=== PATIENT | male | born 1975 | race Hispanic/Latino ===

== ENCOUNTER 2021-05-09 08:00 | Outpatient (RCR) | payer OTHER, SELFPAY ==
--- NOTE | 2021-04-05 09:39 | HP.PTEVAL_ITS ---
Patient's Visit Information MALDONADO COMBS is a 45 year old M referred to Physical Therapy by BARBARA Wolff with a diagnosis of LUMBAR FACET ARTHROPATHY. Date of Evaluation: 04/05/21 Physical Therapist: Jenniffer Acosta PT, Cert MDT - Visit Plan Frequency: 2-3x /Week Duration: 4-6 Weeks Plan: AQUATIC THERAPY FOR PAIN RELEIF, POSTURE CORRECTION/STRENGTHENING, INSTRUCTION IN APPROPRIATE BODY MECHANICS AND ACTIVITY MODIFICATIONS. DLS STARTING WITH A NEUTRAL SPINE PROGRESSING ROM TOLERATED. INÉS LE ROM, STRETCHING AND STRENGTHENING. HEP INSTRUCTION. 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 3RD SHIFT 10:30 (8:30) PM TO 6:30 AM. VERY LITTLE LABOR. A LOT OF SITTING. ALSO STANDING AND WALKING. PLAYS ICE HOCKEY ABOUT ONCE A WEEK FOR ABOUT 4 MONTHS MAY THROUGH DECEMBER. Present symptoms: RIGHT LOW BACK PAIN. INÉS HIP PAIN RIGHT > LEFT. DENIES GROIN PAIN. SOMTIMES INÉS LOW BACK PAIN. RECENT EPISODE OF RIGHT LE SX'S TO FOOT IN DECEMBER (LASTED ABOUT 2 WEEKS AND STRUGGLED TO DO ALMOST ANYTHING BUT W ORKED). INTERMITTENT RIGHT LE PAIN, NUMBNESS AND TINGLING. DENIES LLE SX'S. Present since: FOR YEARS BUT INCREASED IN spring. Pain Scale: WORST 10/10, LEAST 3/10. Currently: 4/10. Commenced as a result of: SITTING AND STOOD UP AND LOCKED UP SPRING 2019. Symptoms at onset: LOW BACK STIFFNESS FOR YEARS. Worse: LIFTING, BENDING, STANDING LONGER THAN 10 MINS, PROLONGED SITTING, WALKING. WENT TO [facility] YESTERDAY AND WALKED ON THE TREADMILL FOR AN HOUR AND ABOUT 15 OR 20 MINUTES IN THE PAIN WAS INTENSIFING. ABOUT 4.OMPH AND NO INCLINE. PAIN 6/10 POST TREADMIL. Better: INVERTER - MAYBE 20 MINUTE RELIEF THEN TIGHTENS BACK UP AGAIN. HEAT. SWIMMING POOL JETS. PREDNISONE AND MUSCLE RELAXER X 2 EPISODES BUT HELPED IN THE PAST TEMPRARILY. CURRENTLY NOT TAKING ANY PAIN MEDS. OTC OR OTHERWISE. Disturbed sleep: NO. Previous history/Previous treatment: PREDNISONE AND MUSCLE RELAXERS IN THE PAST ONLY. NO BACK SURGERY. NO BACK INJECTIONS. ONE CHIRO VISIT A FEW WEEKS AGO IN JANUARY AND I HATED IT BECAUSE THE SUDDEN CRACKING FELT UN-NATURAL AND I DON'T TRUST IT. I FELT LIKE HE WAS GOING TO BREAK ME. MORE SORE A COUPLE DAYS LATER. NO PHYSICAL THERAPY. Treatment this episode: PREDNISONE, MUSCLE RELAXER, AND ONE CHIROPRACTIC VISIT. ONE ORTHO CONSULT WITH MIGUEL AT [facility]. REPRODIONTE RIVERA SAW THAT THE LOWER TWO LEVELS IN HIS BACK SHOW DEGENERATION AND SHE WOULD LIKE HIM TO TRY PT FIRST AND GO FROM THERE. PROBABLE MRI NEEDED. Coughing/sneezing/straining: NOT CURRENTLY. Gait: SHORTER STRIDES. INÉS LE ER MORE THAN USUAL - I WADDLE. Difficulty initiating urinatin: NO. Accidents: NO. Unexplained weight loss: NO. Imaging: RECENT LUMBAR X-RAY AT [facility]. PMH/Recent major surgery: ANXIETY - Objective Sitting/Standing Posture: POOR. Lordosis: NORMAL. Lateral shift: NO. Relevant shift: N/A. Active Correction of posture: WORSE. Other Observations: INDEP GAIT AND TRANSFERS BUT DECREASED INÉS STRIDE LENGTH AND GUARDED MVMTS. Motor deficit: INÉS LE'S 5/5 WITH MMT'ING EXCEPT RIGHT HIP 4/5. Sensory deficit: INÉS LE LIGHT TOUCH SENSATION INTACT AND SYMMETRICAL. ROM deficit: TIGHT INÉS LE HS'S, HIP FLEXORS AND GASTROC SOLEUS COMPLEX'S. Reflexes: 2/3 INÉS LE'S. Dural Signs: POSITIVE RIGHT LE. Lumbar mvmt loss: flex - MOD. ext - MOD. R SG - MOD. L SG - MOD TO VALERIE. INCREASED LBP WITH LUMBAR ROM TESTING ALL PLANES. Core strength: POOR. Palpation: TENDERNESS WITH PALPATION OF THE RIGHT LUMBAR PARASPINAL REGIONS. TREATMENT: NEUROMUSCULAR REEDUCATION - RETRAINING OF MVMT AND POSTURE FOR SITTING, LYING AND STANDING ACTIVITIES. - Balance/Special Test Scores Oswestry Low Back Score: 17 - Goals Goal 1:: DECREASE C/O LOW BACK AND LE SX'S. Goal Time Frame: 4-6 Weeks Goal 2:: IMPROVE PERSONAL CARE, LIFTING, WALKING, SITTING, STANDING, SLEEP, SOCIAL LIFE, TRAVEL AND WORK/HOMEMAKING FUNCTION. Goal Time Frame: 4-6 Weeks Goal 3:: INSTRUCT IN PROPHYLAXIS Goal Time Frame: 4-6 Weeks - Anticipated Interventions Patient/Client Instruction: Educate patient on: Condition, Plan of Care, Risk Factors For the Purpose of:: To improve self management Therapeutic Exercise to Include: Strength training, Body mechanics, Postural training, Flexibilty training, Neuromotor development, In an aquatic setting, Dynamic Lumbar Stabilization For the Purpose of:: To decrease pain, To increase ROM, To improve muscle performance and motor function, To increase tolerance to activity/condition/position, To improve ability of physical actions for home/community/work/leisure Thank you for the opportunity to evaluate your patient. For Medicare and Medicare HMO plans, please review the plan of care and approve it. It will need to be FAXED BACK to us at [phone] for Medicare purposes. For Medicare only, by signing this I certify the plan of care. Please let me know if there are questions or concerns regarding this plan of care. Physician Signature: Date:
--- NOTE | 2021-05-09 08:33 | HP.PTREVAL_ITS ---
Tarsha Vásquez, AMBULATORY CARE COORDINATOR-C, It has been my pleasure to treat MALDONADO COMBS over the last 9 visits for LUMBAR FACET ARTHROPATHY. Please see the progress note below for an update on the physical therapy plan of care! Subjective: I DON'T FEEL MUCH COMPRESSION BEFORE - I FEEL MORE DECOMPRESSED. PATIENT REPORTS THAT AFTER A SESSION WITH THOMAS HE HAD NO PAIN AT ALL FOR ABOUT 24 HOURS. PATIENT REPORTS ABOUT 25% IMPROVEMENT WITH ACTIVITY MODIFICATIONS BUT WHEN HE TRIES TO DO NORMAL DAILY ACTIVITIES LIKE CARRYING GROCERIES INTO THE HOUSE, PICKING UP TOOL BAG AT WORK (30 LBS) AND OTHER LITTLE THINGS. HE REPORTS THAT ONCE HIS PAIN INCREASES IT STAYS INCREASED FOR A LONG TIME. PATIENT REPORTS DECREASED PAIN AFTER EACH WATER SESSION. IT FELT LIKE A FELL A LONG DISTANCE AND LANDED ON MY FEET AND ABSORBED IT ALL IN HIS BACK AND LEGS. Objective/Function: PATIENT WAS SEEN TODAY FOR RE-ASSESSMENT OF PROGRESS TOWARD THE SET PT GOALS AND THE NEED FOR FURTHER PHYSICAL THERAPY VS READINESS FOR DISCHARGE. OVER-ALL JACKNET HAS ONLY MADE MINIMAL PROGRESS WITH PT WITH ACTIVITY MODIFICATIONS OUTSIDE OF THERAPY. UPON EXAM TODAY: LUMBAR MVMT LOSS: FLEX - MOD, EXT - MOD, R SG - MOD, L SG - MOD. PATIENT CONTINUES TO HAVE LOW BACK TENDERNESS WITH PALPATION ESPECIALLY THE RIGHT PARASPINALS. R LE DURAL TEST CONTINUES TO BE POSITIVE TOO. SYMPROMS ARE EASILY AGGREVATED WITH TESTING. PHYSICIAN RE-CHECK RECOMMENDED AND PATIENT AGREEABLE. Plan Plan: PHYSICIAN RE-CHECK Balance/Gait/Functional tests - Balance/Special Test Scores Oswestry Low Back Score: 12 Goals Goal 1:: DECREASE C/O LOW BACK AND LE SX'S. Goal Time Frame: 4-6 Weeks Goal Progress: Progressing Goal 2:: IMPROVE PERSONAL CARE, LIFTING, WALKING, SITTING, STANDING, SLEEP, SOCIAL LIFE, TRAVEL AND WORK/HOMEMAKING FUNCTION. Goal Time Frame: 4-6 Weeks Goal Progress: Progressing Goal 3:: INSTRUCT IN PROPHYLAXIS Goal Time Frame: 4-6 Weeks Goal Progress: Progressing Anticipated Interventions Patient/Client Instruction: Educate patient on: Condition, Plan of Care, Risk Factors For the Purpose of:: To improve self management Therapeutic Exercise to Include: Strength training, Body mechanics, Postural training, Flexibilty training, Neuromotor development, In an aquatic setting, Dynamic Lumbar Stabilization For the Purpose of:: To decrease pain, To increase ROM, To improve muscle performance and motor function, To increase tolerance to activity/condition/position, To improve ability of physical actions for home/community/work/leisure Please do not hesitate to contact me at [phone] by phone or if you have questions or concerns regarding this new plan of care! Sincerely, Jenniffer Acosta, PT, Cert MDT
--- NOTE | 2021-07-19 12:31 | HP.PT.NRP ---
MALDONADO COMBS was seen in my office for initial evaluation on 04/05/21. The following Plan of Care was established for this patient: Initial Frequency: 2-3x /Week Initial Duration: 4-6 Weeks Patient/Client Instruction: Educate patient on: Condition, Plan of Care, Risk Factors For the Purpose of:: To improve self management Therapeutic Exercise to Include: Strength training, Body mechanics, Postural training, Flexibilty training, Neuromotor development, In an aquatic setting, Dynamic Lumbar Stabilization For the Purpose of:: To decrease pain, To increase ROM, To improve muscle performance and motor function, To increase tolerance to activity/condition/position, To improve ability of physical actions for home/community/work/leisure This patient was last seen in our office 05/09/21. Pertinent comments regarding their Physical therapy will appear below: This patient has not returned to Physical Therapy and is appropriate to return to MD for further follow-up as needed. At this point I will be discontinuing this patient from physical therapy. I would be happy to see this patient again in the future if found appropriate by the physician. Thank you! Jenniffer Acosta, PT, Cert MDT Balance/Gait/Functional tests - Balance/Special Test Scores Oswestry Low Back Score: 12
== END 2021-05-09 19:00 | disposition home or self-care (01) ==
LOC: PT 08:00
PROVIDERS: Referring Provider Nurse Practitioner Acute Care; Visit Provider Nurse Practitioner Acute Care
DX: M46.96 Unspecified inflammatory spondylopathy, lumbar region (principal)
CPT/HCPCS: 97112; 97113; 97162; 97164

== ENCOUNTER 2021-05-18 10:54 | Emergency (ER) | payer OTHER, SELFPAY ==
[2021-05-18 10:55] VITALS: BP 174/129; PULSE 104; RESP 18; TEMP 36.6; O2SAT 93; BMI 28.2
--- NOTE | 2021-05-18 11:11 | EDS_ITS ---
HPI HPI - Fall History of Present Illness Chief Complaint: Fall Informant: patient and friend Occured/Mechanism Occurred: Today Pain/Injury Pain Location: head Current Severity: Mild Maximum Severity: Moderate Narrative Narrative: Patient presents after fall with head injury. Patient was walking on ice at the ice rink when he fell striking the back of his head. Friend that is at bedside states there was no loss of consciousness. He has a laceration to the posterior scalp that they applied pressure to. Friend states that has been repeating questions since the injury, but it does seem to be getting better and he seems to be retaining more information. Patient denies neck pain. He is unsure of his last tetanus update. He is not on blood thinners. [facility] Medical History Anxiety Back problem Chronic back pain Colon cancer screening Elevated blood pressure reading Obstructive sleep apnea Seasonal allergies Tongue swelling Home Medications alprazolam 0.5 mg tablet 0.5 mg PO QHS PRN 05/02/21 [History Last Taken Unknown] cholecalciferol (vitamin D3) 50 mcg (2,000 unit) tablet 50 mcg PO DAILY 05/02/21 [History Last Taken Unknown] cod liver oil 1 cap PO ONCE 05/02/21 [History Last Taken Unknown] Allergy/AdvReac Type Severity Reaction Status Date / Time No Known Allergies Allergy Unverified 05/18/21 10:56 Family History Father Cancer Melanoma Grandfather Hypertension Hyperlipemia Surgical History History of removal of cyst Social History Smoking Status: Former smoker alcohol intake: current alcohol intake frequency: a few times a week Alcohol type: beer and hard liquor substance use type: does not use ROS ROS ED Constitutional Constitutional ED: Denies chills or fever(s) Eyes Eyes: Denies change in vision ENT ENT ED: Denies sore throat Cardiovascular Cardiovascular: Denies chest pain Respiratory/Chest Respiratory/Chest: Denies cough or dyspnea Gastrointestinal Gastrointestinal: Denies abdominal pain, diarrhea, nausea or vomiting Genitourinary Genitourinary ED: Denies dysuria Musculoskeletal Musculoskeletal: Denies back pain or neck pain Integumentary Reports other Details: Scalp laceration ; Denies rash Neurologic Neurologic: Reports headache(s); Denies weakness Psychiatric Psychiatric: Reports anxiety; Denies depression Allergic/Immunologic Allergic/Immunologic ED: Denies urticaria EXAM Physical Exam Const Vital Signs: 05/18/21 10:55 05/18/21 11:14 Temperature 98 F Temperature Source Temporal Pulse Rate 104 H Respiratory Rate 18 Respiratory Effort Normal Non-Labored Blood Pressure 174/129 H Blood Pressure Mean 144 Pulse Ox 93 Oxygen Delivery Method Room Air Positive well nourished and well developed General Appearance ED: well developed HEENT HEENT Narrative: 4 cm laceration across the posterior parietal scalp. Bleeding well controlled. Eyes PERRL and EOMs intact bilaterally Neck Neck Narrative: No focal C-spine tenderness. Chest Wall inspection of chest normal and palpation of chest normal Resp normal respiratory effort and clear to auscultation bilaterally Cardio regular rate and regular rhythm GI non-tender Palpation: soft Back/Spine Cervical Spine: Negative for cervical spine tenderness Thoracic Spine / Upper Back: Negative for thoracic spinal tenderness Lumbar Spine / Lower Back: Negative for lumbar spinal tenderness Extremity normal to inspection and full ROM Neuro Neuro Narrative: Patient is alert and oriented but does not remember details of what happened. Allen Coma Scale: document GCS findings Spontaneous Obeys Commands Oriented 15 Sensorium / Orientation: alert Skin Skin Narrative: Scalp laceration as above MDM MDM MDM Narrative Medical decision making narrative: CT head and C-spine obtained. Tetanus update provided. Radiography Diagnostic Testing: Radiology Impression Brain CT 05/18/21 11:25 IMPRESSION: Normal unenhanced CT scan of the brain. Electronically Signed: Quintin Morrissey MD at 11:59 EDT , Service support , Cervical Spine CT 05/18/21 11:25 IMPRESSION: Normal unenhanced CT examination of the cervical spine. Electronically Signed: Quintin Morrissey MD at 12:00 EDT , Service support , Treatment and Re-Evaluation Comments:: CT scans are unremarkable. Patient's wound is anesthetized, cleansed, sutured. Please see procedure note. Close head injury instructions and wound care instructions provided. Patient is to have sutures removed in 7 days. Procedures Lacerations Scalp laceration: Length: 1.57 in Depth: Sub Q Laceration repair: Irrigated, Lidocaine and Local Suture Information: Ethilon, Simple and 4-0 Discharge Plan Triage Chief Complaint: Fall ED Provider: Kaylee Bermeo Dx/Rx/DC Orders Clinical Impression: Laceration of scalp, Head injury, closed, with concussion Instructions: ED Concussion, ED Laceration: All Closures Prescriptions: No Action cholecalciferol (vitamin D3) 50 mcg (2,000 unit) tablet 50 mcg PO DAILY RF: 0 cod liver oil Capsule 1 cap PO ONCE RF: 0 alprazolam [Xanax] 0.5 mg tablet 0.5 mg PO QHS PRNRF: 0 Primary Care Provider: Care Physician,No Primary Referrals: Promise Law MD [STAFF PHYSICIAN] - 7 Days for suture removal Care Physician,No Primary [Primary Care Provider] - Disposition Disposition: Home, Self Care
--- NOTE | 2021-05-18 11:25 | CT_ITS ---
STUDY: CT BRAIN WITHOUT CONTRAST REASON FOR EXAM: Male, 45 years old. Trauma RADIATION DOSAGE (If Supplied By Facility): CTDIvol = ( 44.99 ) mGy, DLP = ( 846.73 ) mGycm TECHNIQUE: Transaxial CT imaging of the brain was performed without administration of intravenous contrast material. Individualized dose optimization techniques were used for this CT. COMPARISON: No relevant priors. FINDINGS: Normal soft tissue structures. Normal calvarium. Normal size ventricles and extra-axial spaces for the patient''s age. Normal white matter tracts of the cerebral hemispheres. Normal basal ganglia and thalami. Normal brainstem. Normal cerebellum. There is no intracranial hemorrhage. There are no findings of an acute ischemic infarction. Normal visualized paranasal sinuses. CT/Brain/Head without Contrast IMPRESSION: Normal unenhanced CT scan of the brain. Electronically Signed: Quintin Morrissey MD at 11:59 EDT , Service support ,
--- NOTE | 2021-05-18 11:25 | CT_ITS ---
STUDY: CT CERVICAL SPINE WITHOUT CONTRAST REASON FOR EXAM: Male, 45 years old. Trauma RADIATION DOSAGE (If Supplied By Facility): CTDIvol = ( 27.61 ) mGy, DLP = ( 609.41 ) mGycm TECHNIQUE: High resolution transaxial imaging was performed without contrast material. Sagittal and coronal images were reconstructed. Individualized dose optimization techniques were used for this CT. COMPARISON: None FINDINGS: Normal craniovertebral junction. Normal anterior atlantoaxial articulation. Normal odontoid process. There is straightening of the normal cervical lordosis. Normal vertebral bodies and posterior osseous elements. C2-3: Normal endplates. Normal disc height and morphology. Normal central canal and intervertebral neuroforamina. C3-4: Normal endplates. Normal disc height and morphology. Normal central canal and intervertebral neuroforamina. C4-5: Normal endplates. Normal disc height and morphology. Normal central canal and intervertebral neuroforamina. C5-6: Normal endplates. Normal disc height and morphology. Normal central canal and intervertebral neuroforamina. C6-7: Normal endplates. Normal disc height and morphology. Normal central canal and intervertebral neuroforamina. C7-T1: Normal endplates. Normal disc height and morphology. Normal central canal and intervertebral neuroforamina. Normal visualized soft tissue structures. CT/Spine Cervical without Contras IMPRESSION: Normal unenhanced CT examination of the cervical spine. Electronically Signed: Quintin Morrissey MD at 12:00 EDT , Service support ,
[2021-05-18] MEDS: Diphth,Pertuss(Acell),Tet Vac 0.5 ML Vial IM (11:32)
[2021-05-18] MEDS: Lidocaine 1% (20 ml mdv) 20 ML Vial INFILT (11:32)
== END 2021-05-18 12:32 | disposition home or self-care (01) ==
PROVIDERS: Emergency Provider Emergency Medicine
DX: S06.0X0A Concussion without loss of consciousness, initial encounter (principal); S01.01XA Laceration without foreign body of scalp, initial encounter; F41.9 Anxiety disorder, unspecified; Z79.899 Other long term (current) drug therapy; Z87.891 Personal history of nicotine dependence; Z23 Encounter for immunization; W18.30XA Fall on same level, unspecified, initial encounter; Y93.01 Activity, walking, marching and hiking; Y92.330 Ice skating rink (indoor) (outdoor) as the place of occurrence of the external cause; Y99.8 Other external cause status
CPT/HCPCS: 12002; 70450; 72125; 90715; 99283

== ENCOUNTER 2021-11-24 15:34 | Outpatient (CLI) | payer OTHER, SELFPAY ==
--- NOTE | 2021-11-24 09:20 | TOBX_PTH ---
PATIENT: MALDONADO COMBS LOC: [facility] U#:[id number] AGE/SX: 46/M ROOM: RE11/24/[address]: Dr. Jose C Avendaño MD : [id number] BED: DIS: 11/24/2021 SPEC #: [id number] RECD: 11/24/21 15:05 STATUS: MIKE DOTSON #: [id number] GLORIA: 11/24/21 09:[address]: Jose C Avendaño DEPT: SURGICAL PATHOLOGY RECD BY: Reena Boo ENTERED: 11/27/21 08:26 SP TYPE: TONGUE BX PENELOPE DR: Dr. Carrillo Salcedo MD Tissues: Tongue, NOS Procedures: Surgery Specimen Level IV HEADER OPERATION: Not noted PRE-OP DIAGNOSIS: Tongue mass TISSUE SUBMITTED: Tongue mass MICROSCOPIC DIAGNOSIS Tongue mass, biopsy: Consistent with polypoid fibroma. AM:tonny 11/28/2021 MICROSCOPIC DESCRIPTION Slides are reviewed. GROSS DESCRIPTION Received in fixative is one container labeled with the patient's name and designated tongue mass. The specimen consists of a piece of sanchez-white soft tissue measuring 0.2 x 0.2 x 0.1 cm. The specimen is totally submitted in one cassette. / SJ:rg 11/27/2021 TC:5 CPT: 34506
== END 2021-11-24 23:59 | disposition home or self-care (01) ==
LOC: LABSPEC 15:35
PROVIDERS: PCP Internal Medicine; Visit Provider Otolaryngology
DX: K14.9 Disease of tongue, unspecified (principal)
CPT/HCPCS: 88305

== ENCOUNTER 2023-07-22 10:38 | Emergency (ER) | payer BC, SELFPAY ==
[2023-07-22 10:39] VITALS: BP 135/95; PULSE 66; RESP 15; TEMP 36.5; O2SAT 99; BMI 31.8
--- NOTE | 2023-07-22 10:59 | EKG12_ITS ---
Test Reason : CP Blood Pressure : / mmHG Vent. Rate : 077 BPM Atrial Rate : 077 BPM P-R Int : 154 ms QRS Dur : 078 ms QT Int : 370 ms P-R-T Axes : 051 -24 042 degrees QTc Int : 418 ms Normal sinus rhythm Normal ECG Confirmed by ROSEANNE LITTLEJOHN, HODAN ([id number]), editorial intern PINKY DENT ([id number]) on 07/24/2023 12:44:02 PM Referred By: MARIELLE/MARGARITA Confirmed By:HODAN CRONIN MD
--- NOTE | 2023-07-22 11:01 | ED.RN ---
NO OLD EKG
[2023-07-22 11:08] LABS: Absolute Neutrophil Count 3.2 X10^3/uL (2.0-7.7); Basophil# 0.03 X10^3/uL; Basophil% 0.6 % (0-1); Eosinophil# 0.07 X10^3/uL; Eosinophils% 1.3 % (0-5); Hematocrit 44.4 % (40-54); Hemoglobin 15.6 g/dL (13.0-16.5); Mean Corp Hgb Conc 35.1 g/dL (32-36); Mean Corpuscular Hgb 29.7 pg (27.0-32.0); Mean Corpuscular Volume 84.6 fL (80-94); Mean Platelet Vol. 9.6 fl (6.2-12.0); Monocyte% 7.5 % (0-10); NRBC Flagged by Analyzer 0 % (0-5); Neutrophil # 3.22 X10^3/uL (2.7-7.7); Neutrophil % 60.2 % (47-70); Platelet Count 275 K/mm3 (150-450); RBC Distribution Width CV 12.1 % (11.6-14.6); RBC Distribution Width SD 36.9 fl (35.1-43.9); Red Blood Count 5.25 M/mm3 (4.6-6.2); White Blood Count 5.3 K/mm3 (4.4-11.0)
--- NOTE | 2023-07-22 11:08 | RAD_ITS ---
HISTORY: chest pain. TECHNIQUE: XR Chest 1 View. COMPARISON: None. FINDINGS: CARDIOMEDIASTINAL BORDERS: Cardiac silhouette within normal limits in size. Mediastinal contour unremarkable. LUNGS: Radiographically clear. PLEURA: No pleural effusion or pneumothorax seen. OSSEOUS STRUCTURES: Unremarkable. RAD/Chest 1 View (Portable) IMPRESSION: No acute cardiopulmonary process identified. Electronically Signed: Jeannie Cramer MD at 11:17 EST ,
[2023-07-22 11:30] LABS: Anion Gap 6 (5-15); BUN 10 mg/dL (7-18); BUN/Creat Ratio 9.5 RATIO (10-20); Calcium,Total 9.1 mg/dL (8.5-10.1); Chloride 106 mmol/L (98-107); Creatinine, Serum 1.05 mg/dL (0.70-1.30); EST Glomerular Filtration Rate 80 mL/min (>60); Est Glom Filt Rate - Afr Amer 97 mL/min (>60); Estimated Creatinine Clearance 81.31 ml/min; Glucose 92 mg/dL (74-106); Potassium 3.6 mmol/L (3.5-5.1); Sodium Level 140 mmol/L (136-145); Troponin-I HS (w/2H Reflex) 5 pg/mL (3.0-78.0)
[2023-07-22] MEDS: Aspirin 81 MG TAB.CHEW 324 MG PO (11:39)
[2023-07-22 12:12] VITALS: BP 128/83; PULSE 67; RESP 16; O2SAT 97
[2023-07-22 13:04] LABS: Reflex Troponin-HS? (from REC) Y
[2023-07-22 13:21] LABS: Troponin-I HS 5 pg/mL (3.0-78.0)
--- NOTE | 2023-07-22 13:54 | EDS_ITS ---
HPI History of Present Illness Chief Complaint: Chest Pain Narrative Narrative: 47-year-old male with history of hypertension, ALESSANDRO, anxiety presenting with chest pain. Started about 9:40 AM. He describes it as tightness. He was fairly constant until prior to the emergency room. Patient states he has had cardiac issues in the past. He just had a work-up done at [facility]. Recent echo was reassuring. Patient states that he has not a cough, fever, shortness of breath. No orthopnea or dyspnea on exertion. Patient is concerned this could possibly be anxiety but also was concerned with his history of cardiac disease. [facility] Medical History Anxiety Back problem Chronic back pain Colon cancer screening Elevated blood pressure reading Obstructive sleep apnea Seasonal allergies Tongue swelling Home Medications alprazolam 0.5 mg tablet (Xanax) 0.5 mg PO QHS PRN 05/02/21 [History Last Taken Unknown] cholecalciferol (vitamin D3) 50 mcg (2,000 unit) tablet 50 mcg PO DAILY 05/02/21 [History Last Taken Unknown] cod liver oil 1 cap PO ONCE 05/02/21 [History Last Taken Unknown] Allergy/AdvReac Type Severity Reaction Status Date / Time No Known Allergies Allergy Verified 07/22/23 10:43 Family History Father Cancer Melanoma Grandfather Hypertension Hyperlipemia Surgical History History of removal of cyst Social History Smoking Status: Former smoker alcohol intake: current alcohol intake frequency: a few times a week Alcohol type: beer and hard liquor substance use type: does not use ROS ROS ED Constitutional Constitutional ED: Denies chills, fever(s) or sweats Eyes Eyes: Denies blurry vision or change in vision ENT ENT ED: Denies ear pain or sore throat Cardiovascular Cardiovascular: Reports chest pain and palpitations; Denies racing heartbeat Respiratory/Chest Respiratory/Chest: Denies cough, dyspnea or sputum Gastrointestinal Gastrointestinal: Denies abdominal pain, constipation, diarrhea, nausea or vomiting Genitourinary Genitourinary ED: Denies dysuria, hematuria or urinary frequency Musculoskeletal Musculoskeletal: Denies arthralgias, myalgias or neck pain Integumentary Denies abscess, Abrasions or rash Neurologic Neurologic: Denies headache(s), paresthesias or weakness Psychiatric Psychiatric: Reports anxiety; Denies depression, suicidal ideation or suicidal thoughts Endocrine Endocrinology: Denies polydipsia or polyuria EXAM Physical Exam Const Vital Signs: 07/22/23 10:39 07/22/23 12:11 07/22/23 12:12 Temperature 97.7 F L Temperature Source Oral Pulse Rate 66 Respiratory Rate 15 Respiratory Effort Normal Non-Labored Blood Pressure 135/95 H Blood Pressure Mean 108 Pulse Ox 99 Oxygen Delivery Method Room Air Room Air 07/22/23 12:12 Temperature Temperature Source Pulse Rate 67 Respiratory Rate 16 Respiratory Effort Blood Pressure 128/83 H Blood Pressure Mean 98 Pulse Ox 97 Oxygen Delivery Method Room Air Positive well nourished General Appearance ED: NAD; Negative for pallor HEENT Reports moist mucous membranes normocephalic and atraumatic Eyes PERRL and EOMs intact bilaterally Chest Wall inspection of chest normal Resp normal respiratory effort and clear to auscultation bilaterally Auscultation: Negative for rales, rhonchi or wheezes Cardio regular rate and regular rhythm GI normal to inspection, nondistended, normoactive bowel sounds Neuro oriented x3 and CN's II-XII intact bilaterally Sensorium / Orientation: awake and alert Psych Mood & Affect: anxious Skin no rashes or lesions noted General Skin Exam: Negative for jaundice or pallor Heart Score History: Slightly/Non-Suspicious ECG: Normal Age: >45 - <65 years Risk Factors: 1 or 2 Risk Factors Troponin: </= Normal Limit Score: 2 MDM MDM MDM Narrative Medical decision making narrative: Patient presenting with chest pain. Differential includes ACS, pneumonia, PE however patient PERC negative. CBC obtained to assess white blood cell count, hemoglobin, platelets. BMP to assess renal function, electrolytes. Sensitivity troponin and EKG to assess for dysrhythmia/ischemia. Chest x-ray to rule pneumonia. EKG on my interpretation shows a normal sinus rhythm with a ventricular to 77 beats minute without sign of ischemic change or dysrhythmia. Chest x-ray my interpretation shows no acute process. Patient's troponin and delta troponin are both 5. Patient denies any chest pain currently in the ED. Given his negative work-up I feel he stable for discharge home. He does have concern this could possibly be anxiety and I recommended he follow-up with his PCP for this. Patient has Xanax at home that he takes for this. Return precautions were discussed. Impression: 1. Chest pain 2. History of anxiety Lab Data Attestation: I reviewed the patient's lab results. Labs: Laboratory Results - last 24 hr 07/22/23 07/22/23 10:45 12:30 WBC 5.3 RBC 5.25 Hgb 15.6 Hct 44.4 MCV 84.6 MCH 29.7 MCHC 35.1 RDW Std Deviation 36.9 RDW Coeff of Jennifer 12.1 Plt Count 275 MPV 9.6 Immature Gran % (Auto) 0.400 Neut % (Auto) 60.2 Lymph % (Auto) 30.0 [place] % (Auto) 7.5 Eos % (Auto) 1.3 Baso % (Auto) 0.6 Absolute Neuts (auto) 3.2 Absolute Lymphs (auto) 1.60 Nucleated RBC % 0 Sodium 140 Potassium 3.6 Chloride 106 Carbon Dioxide 28.0 Anion Gap 6 BUN 10 Creatinine 1.05 Estim Creat Clear Calc 81.31 Est GFR (MDRD) Af Amer 97 Est GFR (MDRD) Non-Af 80 BUN/Creatinine Ratio 9.5 L Glucose 92 Calcium 9.1 Troponin I High Sens 5 5 Radiography Diagnostic Testing: Clinical Impression(s) from Imaging Studies Chest X-Ray 07/22/23 11:08 IMPRESSION: No acute cardiopulmonary process identified. Electronically Signed: Jeannie Cramer MD at 11:17 EST , Discharge Plan Triage Chief Complaint: Chest Pain ED Provider: Edvin Chen Dx/Rx/DC Orders Instructions: ED Chest Pain, Uncertain Cause Prescriptions: No Action cholecalciferol (vitamin D3) 50 mcg (2,000 unit) tablet 50 mcg PO DAILY cod liver oil Capsule 1 cap PO ONCE alprazolam [Xanax] 0.5 mg tablet 0.5 mg PO QHS PRN Primary Care Provider: Ovidio Horne NP Referrals: Coleen,Ovidio Maxwell UNDER CUTTING MACHINE OPERATOR, UNDER CUTTING MACHINE OPERATOR-C [Primary Care Provider] - Disposition Disposition: Home, Self Care
[2023-07-22 14:08] VITALS: BP 128/83; PULSE 86; RESP 16
== END 2023-07-22 14:11 | disposition home or self-care (01) ==
PROVIDERS: Emergency Provider Student in an Organized Health Care Education/Training Program; PCP Nurse Practitioner Family; Visit Provider Student in an Organized Health Care Education/Training Program
DX: R07.9 Chest pain, unspecified (principal); F41.9 Anxiety disorder, unspecified; I10 Essential (primary) hypertension; Z87.891 Personal history of nicotine dependence
CPT/HCPCS: 71045; 80048; 84484; 85025; 93005; 99284; A4216

== ENCOUNTER 2024-04-18 20:36 | Emergency (ER) | payer BC, SELFPAY ==
[2024-04-18 20:36] VITALS: BP 144/85; PULSE 75; RESP 18; TEMP 36.1; O2SAT 99; BMI 30.6
--- NOTE | 2024-04-18 20:53 | EKG12_ITS ---
Test Reason : CP Blood Pressure : / mmHG Vent. Rate : 065 BPM Atrial Rate : 065 BPM P-R Int : 150 ms QRS Dur : 082 ms QT Int : 386 ms P-R-T Axes : 037 -17 044 degrees QTc Int : 401 ms Normal sinus rhythm Normal ECG Confirmed by ASHLIE LITTLEJOHN, KOMAL ([id number]), assignment desk editor PINKY DENT ([id number]) on 04/24/2024 6:15:53 AM Referred By: Confirmed By:JANKI DAILEY MD
--- NOTE | 2024-04-18 21:00 | ED.VIS.CHEST ---
HPI History of Present Illness Chief Complaint: Chest Pain Informant: patient Onset/Context/Timing Onset: Today and Hours Activity at onset: sudden Timing: Intermittent Quality: Positive for - (Cramping like a muscle spasm.) Location: Left Chest Current Severity: Gone Maximum Severity: Mild Worsened By: Nothing Relieved By: Nothing Associated Symptoms: Negative for Nausea, Vomiting, Diaphoresis, Dyspnea, Cough, Fever, Lightheadedness, Acid Reflux or Palpitations Narrative Narrative: 48-year-old male history of anxiety. No prior cardiac history. No prior cath or stress test. Was packing the night for a trip he put a piece of luggage down. He had a jolt in his left chest. He said he fell like a muscle spasm. It lasted less than 5 seconds. He had several other episodes. Currently his pain-free. No radiation to his neck jaw or back. No radiation of his arm. No recent exertional dyspnea nor any exertional chest pain. Prior Similar Symptoms: No Recent Illness/Hospitalization: No CVD Risk Factors: Negative for Hypertension, Diabetes or Hypercholesterolemia PE Risk Factors: Negative for Recent Travel/Surgery, Recent Immobilization, Prior DVT or PE, Cancer or OCP + Smoking + >/=35 TAD Risk Factors: Negative for Marfan's Syndrome or Hypertension [facility] Medical History Chronic back pain Obstructive sleep apnea Elevated blood pressure reading Tongue swelling Colon cancer screening Back problem Anxiety Seasonal allergies Home Medications ?Medication ?Instructions ?Recorded ?Last Taken ?Type NK 04/18/24 Unknown History Allergy/AdvReac Type Severity Reaction Status Date / Time No Known Allergies Allergy Verified 04/18/24 20:47 Family History Father Cancer Melanoma Grandfather Hypertension Hyperlipemia Surgical History History of removal of cyst Social History housing: house Smoking Status: Former smoker alcohol intake: current alcohol intake frequency: a few times a week Alcohol type: beer and hard liquor substance use type: does not use ROS ROS ED ROS Narrative Denies recent illness. Denies any recent exertional chest pain or exertional shortness of breath. Review of Systems ROS Unobtainable: Denies due to encephalopathy Constitutional Constitutional ED: Denies chills or fever(s) Eyes Eyes: Reports none ENT ENT ED: Denies ear pain Cardiovascular Cardiovascular: Reports as per HPI and chest pain; Denies palpitations or racing heartbeat Respiratory/Chest Respiratory/Chest: Denies cough, dyspnea or dyspnea on exertion Gastrointestinal Gastrointestinal: Denies abdominal pain, constipation, diarrhea, melena, nausea or vomiting Genitourinary Genitourinary ED: Denies dysuria or hematuria Musculoskeletal Musculoskeletal: Denies arthralgias or back pain Integumentary Denies abscess Neurologic Neurologic: Denies headache(s) Psychiatric Psychiatric: Reports anxiety Endocrine Endocrinology: Denies cold intolerance Hematologic/Lymphatic Hematologic/Lymphatic: Denies easy bleeding or easy bruising Allergic/Immunologic Allergic/Immunologic ED: Denies mouth swelling, tongue swelling or urticaria EXAM Physical Exam Narrative Exam Narrative: Well-appearing 48-year-old male. Vital signs stable afebrile. Pulse ox 99% on room air no hypoxia. H EENT exam unremarkable. Neck nontender. No JVD. No lymphadenopathy. Lungs clear to auscultation bilaterally. Heart regular rhythm no murmur. Chest wall minimal tenderness left anterior rib cage just below his nipple on the left. No ecchymosis or bruising. No subcu air. No redness or warmth. No swelling. Normal in appearance. No bony deformity. Abdomen soft nontender. Normal bowel sounds no peritoneal signs. Moving all 4 extremities. Equal 5/5 stopperer assembler strength. Dorsi plantarflexion intact. Equal symmetrical radial pulses. Calves are nontender no edema or cords. Back nontender. Neurologically is awake and alert no focal motor deficits. Const Vital Signs: 04/18/24 20:36 04/18/24 21:07 04/18/24 21:36 Temperature 96.9 F L Temperature Source Temporal Pulse Rate 75 69 Respiratory Rate 18 20 H Blood Pressure 144/85 H 141/85 H Blood Pressure Mean 104 103 Pulse Ox 99 Oxygen Delivery Method Room Air Room Air Positive well nourished and well developed; Negative for cachectic, contractures or unkempt General Appearance ED: well developed and NAD; Negative for unkempt, cachectic, contractures or pallor Nutritional Appearance: Negative for cachectic HEENT Reports moist mucous membranes normocephalic and atraumatic; Negative for trauma or tenderness Eyes PERRL and EOMs intact bilaterally General Eye ED: Negative for pale conjunctiva Neck no lymphadenopathy, supple and no JVD General: Negative for tenderness Chest Wall inspection of chest normal; Negative for palpation of chest normal Chest Narrative: Minimal tenderness left anterior chest midclavicular line below his nipple. No bruising or redness. No bony crepitance. No subcu air. Normal appearance. Resp normal respiratory effort and clear to auscultation bilaterally Effort and Inspection: Negative for respiratory distress Auscultation: Negative for rales, rhonchi, wheezes or diminished lung sounds Cardio regular rate, regular rhythm, S1 normal heart sound, S2 normal heart sound and no murmurs Rate: Negative for bradycardia, tachycardic or other Rhythm: Negative for abnormal rhythm Peripheral Pulses: pulses 2+ throughout GI normal to inspection, nondistended, normoactive bowel sounds, soft to palpation, non-tender, non-distended and no masses Back/Spine no CVA tenderness and no thoracic nor lumbar tenderness General Back: Negative for CVA tenderness Cervical Spine: Negative for cervical spine tenderness Extremity normal to inspection General Extremety ED: Negative for edema, pulses abnormal or tenderness General Extremity: Negative for edema or pulses abnormal Neuro oriented x3 and CN's II-XII intact bilaterally Sensorium / Orientation: awake, alert, oriented to person, oriented to place and oriented to time; Negative for confused, lethargic or stuporous Motor Exam: strength 5/5 throughout Psych mental status grossly normal Appearance: Negative for unkempt Attitude: No agitated Mood & Affect: anxious; Negative for depressed or tearful Skin no rashes or lesions noted and no wounds General Skin Exam: Negative for jaundice or pallor Rashes: No rashes noted Trauma: Negative for abrasion or laceration Heart Score History: Slightly/Non-Suspicious ECG: Normal Age: >45 - <65 years Risk Factors: No Risk Factors Troponin: </= Normal Limit Score: 1 MDM MDM MDM Narrative Medical decision making narrative: 48-year-old male history of anxiety with very atypical nonexertional chest pain is mildly reproducible. I suspect this is musculoskeletal etiology. It may have been a muscle spasm. And only occurred about 7 hours ago. It has been intermittent. No undergoing cardiac workup. My suspicion of this being cardiac is very low. If his cardiac workup is negative will be discharged home. No history of DVT or PE risk factors. Repeat exam at 9:58 PM patient is doing well. Exam benign and unchanged. He and I went over all his test results. We discussed the 2-hour troponin. Patient would prefer not to wait around. He will be discharged home. I do not think this is cardiac I do not think the 2-hour troponin would have been abnormal. History & Record Review Discussion w/independent historian: Patient Additional record(s) reviewed:: Prior inpatient record, Prior outpatient record, Prior ED visit, Prior labs and No prior records Lab Data Attestation: I reviewed the patient's lab results. Lab results narrative: CBC normal. White count is 7. H&H 15 and 45. Platelets 298. Chest x-ray normal. Chemistry is normal. Gap 6. Normal BUN and creatinine. Glucose 101. Initial troponin 3. Labs: Laboratory Results - last 24 hr 04/18/24 20:51 WBC 7.2 RBC 5.43 Hgb 15.9 Hct 45.9 MCV 84.5 MCH 29.3 MCHC 34.6 RDW Std Deviation 37.1 RDW Coeff of Jennifer 12.3 Plt Count 298 MPV 9.4 Immature Gran % (Auto) 0.300 Neut % (Auto) 55.5 Lymph % (Auto) 31.5 [place] % (Auto) 10.4 H Eos % (Auto) 1.9 Baso % (Auto) 0.4 Absolute Neuts (auto) 4.0 Absolute Lymphs (auto) 2.28 Nucleated RBC % 0 Sodium 137 Potassium 3.5 Chloride 103 Carbon Dioxide 28.0 Anion Gap 6 BUN 14 Creatinine 1.05 Estim Creat Clear Calc 89.64 Est GFR (MDRD) Af Amer 97 Est GFR (MDRD) Non-Af 80 BUN/Creatinine Ratio 13.3 Glucose 101 Calcium 9.1 Troponin I High Sens 3 Radiography Chest X-Ray - ED: 1 View, Read by ED Physician, Heart, Lungs, Mediastinum, Bony Structures and No Acute Disease Diagnostic Testing: Clinical Impression(s) from Imaging Studies Chest X-Ray 04/18/24 21:10 IMPRESSION: No radiographic evidence of acute cardiopulmonary disease. Electronically Signed: Huy Ivy MD at 21:43 EDT , Chest x-ray, portable, single view interpreted by myself shows no acute abnormality. Normal cardiac silhouette. Normal lung hurtado. Normal mediastinum. No pneumothorax. No infiltrate. Rhythm Strip Rhythm Strip: Sinus Rhythm Rate: 65 Ectopy: None EKG Initial EKG: Attestation: I personally reviewed and interpreted this EKG as follows: Interpretation: Sinus Rhythm and No Acute Injury Pattern Comments: Normal sinus rhythm rate of 65 no acute signs of ischemia. Discharge Plan Triage Chief Complaint: Chest Pain ED Provider: Richard Espitia Dx/Rx/DC Orders Clinical Impression: Chest pain Instructions: ED Chest Pain, Noncardiac Prescriptions: No Action NK Primary Care Provider: Ovidio Horne NP Referrals: Ovidio Horne PLASTIC MANAGER, PLASTIC MANAGER-C [Primary Care Provider] - 3-5 Days if not improving Activity Restrictions/Additional Instructions: This does not appear to be your heart. It is most likely musculoskeletal chest wall pain. Motrin for pain and inflammation. Tylenol for pain. Follow-up as needed. Your chest x-ray, EKG and labs were normal. Print Language: [place] Disposition Disposition: Home, Self Care
[2024-04-18 21:09] LABS: Absolute Lymphocyte Count 2.28 X10^3/uL (0.83-4.51); Basophil# 0.03 X10^3/uL; Basophil% 0.4 % (0-1); Eosinophil# 0.14 X10^3/uL; Eosinophils% 1.9 % (0-5); Hematocrit 45.9 % (40-54); Hemoglobin 15.9 g/dL (13.0-16.5); Lymphocyte # 2.28 X10^3/ul (0.83-4.51); Lymphocyte % 31.5 % (19-41); Mean Corp Hgb Conc 34.6 g/dL (32-36); Mean Corpuscular Hgb 29.3 pg (27.0-32.0); Mean Corpuscular Volume 84.5 fL (80-94); Mean Platelet Vol. 9.4 fl (6.2-12.0); Monocyte# 0.75 X10^3/uL; Monocyte% 10.4 % (0-10); NRBC Flagged by Analyzer 0 % (0-5); Neutrophil # 4.01 X10^3/uL (2.7-7.7); Neutrophil % 55.5 % (47-70); Platelet Count 298 K/mm3 (150-450); RBC Distribution Width CV 12.3 % (11.6-14.6); RBC Distribution Width SD 37.1 fl (35.1-43.9); Red Blood Count 5.43 M/mm3 (4.6-6.2); White Blood Count 7.2 K/mm3 (4.4-11.0)
--- NOTE | 2024-04-18 21:10 | RAD_ITS ---
EXAM: XR CHEST, 1 VIEW CLINICAL INDICATION: chest pain TECHNIQUE: Frontal view of the chest. COMPARISON: 07/22/2023 FINDINGS: LUNGS AND PLEURAL SPACES: Unremarkable. No consolidation or edema. No pneumothorax. No effusion. HEART: Unremarkable. Cardiac silhouette not enlarged. MEDIASTINUM: Central airways and mediastinal contour are unremarkable. BONES/JOINTS: Unremarkable. No acute fracture. SOFT TISSUES: Unremarkable. RAD/Chest 1 View (Portable) IMPRESSION: No radiographic evidence of acute cardiopulmonary disease. Electronically Signed: Huy Ivy MD at 21:43 EDT ,
[2024-04-18 21:26] LABS: Anion Gap 6 (5-15); BUN 14 mg/dL (7-18); BUN/Creat Ratio 13.3 RATIO (10-20); Calcium,Total 9.1 mg/dL (8.5-10.1); Chloride 103 mmol/L (98-107); Creatinine, Serum 1.05 mg/dL (0.70-1.30); EST Glomerular Filtration Rate 80 mL/min (>60); Est Glom Filt Rate - Afr Amer 97 mL/min (>60); Estimated Creatinine Clearance 89.64 ml/min; Glucose 101 mg/dL (74-106); Potassium 3.5 mmol/L (3.5-5.1); Sodium Level 137 mmol/L (136-145); Troponin-I HS (w/2H Reflex) 3 pg/mL (3.0-78.0)
[2024-04-18 21:36] VITALS: BP 141/85; PULSE 69; RESP 20
[2024-04-18 22:00] VITALS: BP 142/78; PULSE 88; RESP 16; O2SAT 100
[2024-04-18 22:20] VITALS: BP 132/78; PULSE 78; RESP 16; TEMP 36.6; O2SAT 100
[2024-04-18 23:05] LABS: Reflex Troponin-HS? (from REC) Y
== END 2024-04-18 22:22 | disposition home or self-care (01) ==
PROVIDERS: Emergency Provider Emergency Medicine; PCP Nurse Practitioner Family; Visit Provider Emergency Medicine
DX: R07.9 Chest pain, unspecified (principal); Z87.891 Personal history of nicotine dependence; F41.9 Anxiety disorder, unspecified; Z79.899 Other long term (current) drug therapy
CPT/HCPCS: 71045; 80048; 84484; 85025; 93005; 99284